=== PATIENT | male | born 1980 | race Caucasian/White ===

== ENCOUNTER 2020-05-23 19:01 | Emergency (ER) | payer SELFPAY ==
--- NOTE | ~2020-05-23 | XR_ITS ---
EXAMINATION: XR chest 1V EXAM DATE: 05/23/2020 19:42 INDICATION: Temporary change of awareness. TECHNIQUE: Portable AP frontal chest x-ray was obtained. There is no prior study for comparison. FINDINGS: Low lung volume with prominent cardiac size and some pulmonary vascular congestion. No conf luent consolidation, pneumothorax or pleural effusion suspected. There are no osseous abnormalities i dentified. IMPRESSION: Possible congestive changes versus low lung volume and vascular crowding. Reviewed, dictated and finalized at location A. 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
--- NOTE | ~2020-05-23 | CT_ITS ---
EXAMINATION: CTA brain carotid EXAM DATE: 05/23/2020 19:39 INDICATION: Temporary change in awareness. TECHNIQUE: Noncontrast head CT. Spiral CTA of the carotid arteries was performed with intravenous i njection 100 cc of Omnipaque 350. Axial, coronal, sagittal reformatted images reviewed. Additional r eformatted images created on dedicated 3-D workstation. NASCET comparable standard used to assess th e degree of arterial stenosis. Spiral CT angiogram cerebral arteries performed with the same intrave nous injection of contrast. Source images of the brain CTA transferred to dedicated workstation for 3 -D rotational image creation. Coronal, sagittal maximum intensity pixel images also reviewed. The d ose-length product (DLP) for this examination was 1648.37 mGy-cm. The exposure was tailored accordi ng to patient size, and iterative reconstruction (ASIR) was used as additional dose reduction techniq ue. There is no prior study for comparison. FINDINGS: There is no carotid stenosis. There is no carotid or vertebral basilar arterial dissection or fibromuscular dysplasia. There are no cerebral artery aneurysms. There is symmetric cerebral flaco ry arborization. The sagittal, transverse and sigmoid sinuses enhance normally, no venous sinus throm bosis. Internal cerebral veins also enhance normally. There is no acute intraparenchymal hemorrhage. No evidence of intraparenchymal brain mass lesion. N o evidence of acute infarction. There is no mass effect or midline shift. There is no obstructive hyd rocephalus suspected. There are no extra-axial collections. There are no calvarial acute fractures. There are no areas of abnormal enhancement on the post contrast images. IMPRESSION: Unremarkable CTA brain carotid exam. No stenosis. Reviewed, dictated and finalized at location A.
[2020-05-23 18:53] VITALS: BP 118/70; PULSE 78; RESP 20; TEMP 36.8; O2SAT 95
--- NOTE | 2020-05-23 19:01 | ECG_ITS ---
Measurements Intervals [place] Rate: 80 P: 50 NC: 195 QRS: 14 QRSD: 102 T: 15 QT: 372 QTc: 429 Interpretive Statements SINUS RHYTHM POSSIBLE LEFT ATRIAL ENLARGEMENT BORDERLINE T WAVE ABNORMALITY- INFERIOR LEADS BORDERLINE ECG Electronically Signed On 05-24-2020 7:08:02 CDT by Willis Morton D.O.
--- NOTE | 2020-05-23 19:11 | PC.NURSE ---
report taken at this time from ems and jaron kebede
--- NOTE | 2020-05-23 19:14 | PC.NURSE ---
pt taken to ct at this time.
[2020-05-23 19:15] LABS: Alveolar/Arterial O2 Gradient 22.4 mmHg; Base Excess ABG 0.2 mEq/l (+/-2.0); Basophils Absolute Auto 0.1 K/mm3 (0.0-0.1); Basophils Percent Auto 0.6 % (0.2-1.2); Eosinophils Absolute Auto 0.2 K/mm3 (0-0.3); Eosinophils Percent Auto 1.9 % (0-4.4); Fractional Inspired Oxygen 21 %; HCO3 ABG 26.5 mEq/l (22.0-26.0); Hematocrit 42.1 % (42.0-52.0); Hemoglobin 15.2 g/dL (14.0-18.0); Immature Granulocyte Absolute 0.03 K/mm3 (0.00-0.031); Immature Granulocyte Percent A 0.3 % (0-0.5); Lymphocytes Absolute Auto 2.65 K/mm3 (0.9-3.2); Lymphocytes Percent Auto 30.1 % (18.3-44.2); Mean Corpuscular HGB Conc 36.1 g/dl (32-36); Mean Corpuscular Hemoglobin 31.7 pg (26-34); Mean Corpuscular Volume 87.9 fl (80-100); Mean Platelet Volume 11.3 fl (7.4-10.4); Monocytes Absolute Auto 0.8 K/mm3 (0.1-0.6); Monocytes Percent Auto 8.6 % (2.6-8.5); Neutrophils Absolute Auto 5.1 K/mm3 (1.3-6.7); Neutrophils Percent Auto 58.5 % (45.5-73.1); Oxygen Saturation ABG 92.8 % (95.0-100.0); Oxyhemoglobin 92.7 % THb (90.0-100.0); PCO2 ABG 48.9 mmHg (35.0-45.0); PO2 ABG 68.8 mmHg (80.0-100.0); PO2 FiO2 Ratio Arterial Blood 3.28 %; Platelet Count Result 200 k/mm3 (150-375); Red Blood Count 4.79 M/mm3 (4.6-6.20); Red Cell Distribution Width 12.2 % (11.5-14.5); Site Drawn RIGHT BRACHIAL; Total Hemoglobin 14.6 g/dL (12.0-18.0); White Blood Count 8.8 K/mm3 (4.5-10.0); pH ABG 7.351 (7.350-7.450)
[2020-05-23 19:16] LABS: Device ROOM AIR
[2020-05-23] MEDS: SODIUM CHLORIDE 0.9% IV 1,000 ML 999 ML IV CONT (19:16)
[2020-05-23] MEDS: Please add drug allergy info to patient profile. 1 EACH XX (19:16)
[2020-05-23 19:25] LABS: Prothrombin Time 12.9 Seconds (11.1-14.7)
[2020-05-23 19:26] LABS: Partial Thromboplastin Time 21.6 SECONDS (22.3-36.8)
[2020-05-23 19:28] LABS: Acetaminophen < 10 ug/mL (10-30); Alanine Aminotransferase 60 U/L (4-50); Albumin Level 4.5 g/dL (3.5-5.1); Alkaline Phosphatase 32 U/L (38-126); Ammonia < 9 umol/L (9-30); Anion Gap 10 mmol/L (8-16); Aspartate Amino Transferase 35 U/L (17-59); Bilirubin,Total 0.7 mg/dL (0.2-1.3); Blood Urea Nitrogen 17 mg/dL (9-20); Carbon Dioxide 27 mmol/L (22-30); Chloride 100 mmol/L (98-107); Estimated CRCL calculation 99 ml/min; Estimated Glomerular Filt Rate > 60; Ethanol < 10 mg/dL (<10); Glucose 144 mg/dL (75-110); Potassium 3.7 mmol/L (3.4-5.0); Salicylate < 1.0 mg/dL (2-20); Sodium 137 mmol/L (137-145)
--- NOTE | 2020-05-23 19:34 | ED.AMS ---
HPI - Altered Mental Status General Chief Complaint: Altered Mental Status Stated Complaint: Altered Mental Status Source: family and EMS Mode of arrival: EMS Limitations: altered mental status History of Present Illness HPI narrative: This patient is a 39 year old male who presents via EMS for evaluation of altered mental status. PAtient's girlfriend states they were eating dinner at a restaurant when he told her he didn't feel well. She states patient went to the bathroom, but he did not return after 15 minutes. When she went to check on him, they found patient on bathroom floor with emesis on floor. Patient would not has talked. EMS states patient was unresponsive and they gave patient narcan 2 mg IV without response. He has no known medical problems. Related Data Home Medications Medication Instructions Recorded Confirmed No Home Medications 05/23/20 05/23/20 Allergies Allergy/AdvReac Type Severity Reaction Status Date / Time No Known Allergies Allergy Verified 05/23/20 19:02 Review of Systems Review of Systems: ROS unobtainable: Yes unobtainable due to mental status PMFSH Past Medical History Medical History (Updated 05/23/20 @ 21:33 by Cora Wilde MD) Patient denies medical problems Surgical History Surgical History (Updated 05/23/20 @ 21:26 by Cora Wilde MD) No significant past surgical history Social History Social History (Updated 05/23/20 @ 21:26 by Cora Wilde MD) Smoking status: Never smoker Exam Narrative: Exam Narrative: 1. on arrival physical exam gENERAL: patient looking around, not speaking HEAD: Normocephalic, atraumatic EYES: PERRLA and EOMI, conjunctiva clear without discharge THROAT:Mucous membranes moist, NECK: Supple, without lymphadenopathy or mass RESPIRATORY: No respiratory distress, Airway patent, Respirations non-labored, Clear to auscultation without rales, rhonchi or wheeze HEART: Regular rate and rhythm. No murmur heard. Normal peripheral pulses. ABDOMEN: Soft, nontender, nondistended, normal active bowel sounds. No masses. No rebound or guarding, No organomegaly. EXTREMITIES: No edema, unable to assess strength SKIN: Warm, dry, normal color without rash NEURO: Alert nonverbal, will move extremities with pain. 2. at 1999 physical exam GENERAL: Well-appearing, well-nourished, and in no acute distress. HEAD: Normocephalic, atraumatic EYES: PERRLA and EOMI, conjunctiva clear without discharge EARS: TM's clear bilaterally without erythema or dullness NOSE: Nares clear, no rhinorrhea or epistaxis THROAT:Mucous membranes moist, Oropharynx normal without erythema, exudate, peritonsillar swelling or fluctuance NECK: Supple, without lymphadenopathy or mass RESPIRATORY: No respiratory distress, Airway patent, Respirations non-labored, Clear to auscultation without rales, rhonchi or wheeze HEART: Regular rate and rhythm. No murmur heard. Normal peripheral pulses. ABDOMEN: Soft, nontender, nondistended, normal active bowel sounds. No masses. No rebound or guarding, No organomegaly. EXTREMITIES: No edema, normal strength with full range of motion. SKIN: Warm, dry, normal color without rash NEURO: Alert and oriented x3. CN 2-12 grossly intact. No focal deficits. PSYCH: Normal mood and affect. . Course Reevaluation(s) Reevaluation #1: Patient is awake and talking. He states he remembers eating and he went to the bathroom. He states he felt dizzy so he sat on the toilet. He does not remember anything after that until he was at the hospital. He denies focal deficits. He does report ringing in his left ear and dizziness. Date: 05/23/20 Time: 20:03 Reevaluation #2: Patient states he feels better. He was able to walk with steady gait without complaints. Patient has nonfocal exam. He may have suffered a concussion after falling in bathroom. Date: 05/23/20 Time: 21:29 Vital Signs Vital signs: Vital Signs Temperature 9
[2020-05-23 19:38] LABS: Troponin I < 0.012 ng/mL (0.000-0.034)
[2020-05-23 19:45] LABS: Glucose Point of Care 132 (65-105)
--- NOTE | 2020-05-23 19:46 | PC.NURSE ---
pt a&ox3 at this time after returning from ct. remembers going to restroom before event and waking up in hospital.
[2020-05-23 19:48] VITALS: BP 122/75; PULSE 94; RESP 18; O2SAT 100
[2020-05-23 19:57] LABS: Estimated CRCL calculation 99 ml/min; Estimated Glomerular Filt Rate > 60
[2020-05-23 20:02] LABS: Add Urine Microscopic? YES; Appearance Urine Clear (Clear); Bilirubin Urine Negative (Negative); Blood Urine 1+ (Negative); Color Urine Yellow (Yellow); Glucose Urine UA Negative (Negative); Ketones Urine Negative (Negative); Leukocyte Esterase Ur Negative LEU/UL (Negative); Mucus Urine Rare /lpf; Nitrate Urine Negative (Negative); Protein Urine Negative (Negative); RBC Urine 0-2 /hpf (0-2); Urobilinogen Urine Negative mg/dL (<2.0); WBC Urine 0-3 /hpf
[2020-05-23] MEDS: ONDANSETRON INJ 4 MG/2 ML VIAL IV PUSH (20:11)
[2020-05-23] MEDS: MECLIZINE HCL 25 MG TABLET PO (20:11)
[2020-05-23 20:13] VITALS: BP 127/89; PULSE 91; RESP 18; O2SAT 98
[2020-05-23 20:13] LABS: Creatine Kinase 58 U/L (55-170)
[2020-05-23 20:15] LABS: Amphetamine Screen Urine Negative (Negative); Barbiturate Screen Urine Negative (Negative); Benzodiazepines Screen Urine Negative (Negative); Cannabinoid Screen Urine Positive (Negative); Cocaine Screen Urine Negative (Negative); Methadone Screen Urine Negative (Negative); Opiate Screen Urine Negative (Negative); Phencyclidine Screen Urine Negative (Negative)
[2020-05-23 20:44] VITALS: BP 120/85; PULSE 88; RESP 19; O2SAT 97
--- NOTE | 2020-05-23 21:19 | PC.NURSE ---
pt ambulated around nursing station with no assistance at this time. edp made aware.
[2020-05-23 21:46] VITALS: BP 133/76; PULSE 79; RESP 19; TEMP 36.3; O2SAT 100
== END 2020-05-23 21:47 | disposition home or self-care (01) ==
PROVIDERS: Emergency Provider General Practice
DX: R42 Dizziness and giddiness (principal); R55 Syncope and collapse; R94.31 Abnormal electrocardiogram [ECG] [EKG]
CPT/HCPCS: 36415; 36600; 70496; 70498; 71045; 80053; 80307; 81001; 82140; 82550; 82805; 82948; 84484; 85025; 85610; 85730; 93005; 96361; 96374; 99284; A9270; J2405; J7030; Q9967

== ENCOUNTER 2022-09-15 14:21 | Emergency (ER) | payer BC, SELFPAY ==
[2022-09-15 14:38] VITALS: BP 121/77; PULSE 78; RESP 16; TEMP 36.7; O2SAT 100
--- NOTE | 2022-09-15 15:23 | ED.EYEPROB ---
HPI - Eye Problem General Chief complaint: Eye Problems Stated complaint: Bilateral Eye Irritation Time Seen by Provider: 09/15/22 15:18 Source: patient Mode of arrival: ambulatory Limitations: no limitations History of Present Illness HPI Narrative: Patient presents today complaining of bilateral red irritated eyes. Denies pain. Reports green/yellow drainage from the right eye. Symptoms began last night. Does report recent illness going through his household consisting of cough and congestion. He has tried no [id number] treatment prior to arrival. Denies foreign body sensation. Related Data Allergies Allergy/AdvReac Type Severity Reaction Status Date / Time No Known Allergies Allergy Verified 09/15/22 14:47 Review of Systems Review of Systems: CONSTITUTIONAL: Denies body aches, fever, chills, or sweats. EYES: Denies visual changes. + bilateral eye irritation, drainage ENT: Denies rhinorrhea, congestion, sore throat, or otalgia. CARDIOVASCULAR: Denies chest pain, palpitations, or edema. RESPIRATORY: Denies cough or dyspnea. GASTROINTESTINAL: Denies abdominal pain, nausea, vomiting, or diarrhea. GENITOURINARY: Denies dysuria or hematuria. SKIN: Denies rash, itching, or wounds. MUSCULOSKELETAL: Denies back pain, joint pain, or myalgia. NEUROLOGIC: Denies headache, numbness, tingling, or weakness. PSYCH: Denies depression or anxiety. PMFSH Past Medical History Medical History Patient denies medical problems Surgical History Surgical History No significant past surgical history Social History Social History Smoking status: Never smoker Comments At time of signature, I have reviewed and agree with nursing past medical, surgical, social and family history unless otherwise noted. Please see nursing chart for further information. There is no relevant family history pertinent to the presenting complaint Exam Narrative: GENERAL: Well-appearing, well-nourished, and in no acute distress. HEAD: Normocephalic, atraumatic. EYES: EOMI. PERRL. Bilateral swollen and injected conjunctiva, right greater than left. Small amount of yellow/green purulent discharge to the medial canthus of the right eye. Lids and lashes normal. ENT: Mucous membranes pink and moist. NECK: Normal AROM. CHEST: No respiratory distress. EXTREMITIES: Normal range of motion. SKIN: Warm, dry, no rash. Capillary refill normal. Normal skin turgor. NEURO: No focal deficits. Alert and oriented x3. Gait steady. PSYCH: Normal affect. No signs of depression or anxiety. Course Course Level of Care: Express Care Visit Vital Signs Vital signs: Vital Signs Temperature 98.0 F 09/15/22 14:38 Pulse Rate 78 09/15/22 14:38 Respiratory Rate 16 09/15/22 14:38 Blood Pressure 121/77 09/15/22 14:38 Pulse Oximetry 100 09/15/22 14:38 Oxygen Delivery Room Air 09/15/22 14:38 Temperature 98.0 F 09/15/22 14:38 Pulse Rate 78 09/15/22 14:38 Respiratory Rate 16 09/15/22 14:38 Blood Pressure 121/77 09/15/22 14:38 Pulse Oximetry 100 09/15/22 14:38 Oxygen Delivery Room Air 09/15/22 14:38 Reviewed. Pt has been instructed to follow up with his PCP regarding his elevated blood pressure today. MDM - Eye Problem Differential Diagnosis Differential diagnosis: Likely corneal abrasion, conjunctivitis, periorbital cellulitis and subconjunctival hemorrhage Critical Care Time Critical Care Time Critical Care Time: No Discharge Plan Discharge Clinical Impression: Acute bacterial conjunctivitis of both eyes Patient Disposition: Home, Self-Care Condition: Stable Instructions: Conjunctivitis (ED) Additional Instructions: Use the eyedrops as directed. Wash your hands frequently to help prevent spread. Follow-up with your ey
== END 2022-09-15 15:30 | disposition home or self-care (01) ==
PROVIDERS: Emergency Provider Nurse Practitioner
DX: H10.33 Unspecified acute conjunctivitis, bilateral (principal)
CPT/HCPCS: 99213; G0463

== ENCOUNTER 2022-10-22 09:40 | Emergency (ER) | payer BC, SELFPAY ==
[2022-10-22 09:57] VITALS: BP 139/78; PULSE 71; RESP 18; TEMP 36.8; O2SAT 100
--- NOTE | 2022-10-22 10:06 | ED.WOUNDLAC ---
HPI - Wound/Laceration General Chief Complaint: Wound/Laceration Stated Complaint: Cut Finger Lt Hand Time Seen by Provider: 10/22/22 10:10 Source: patient Mode of arrival: ambulatory Limitations: no limitations History of Present Illness HPI narrative: 41-year-old male presented for complaint of laceration to left middle finger that occurred today while at work. He states he cut it on a piece of metal. He has been applying pressure. Has not cleansed site. Endorses full ROM to finger without numbness, tingling or weakness. Unsure of his last tetanus vaccination. Related Data Allergies Allergy/AdvReac Type Severity Reaction Status Date / Time No Known Allergies Allergy Verified 10/22/22 10:06 Review of Systems Review of Systems: CONSTITUTIONAL: Denies body aches, fever, chills, or sweats. EYES: Denies visual changes, redness, or discharge. ENT: Denies rhinorrhea, congestion CARDIOVASCULAR: Denies chest pain, palpitations, or edema. RESPIRATORY: Denies cough or dyspnea. GASTROINTESTINAL: Denies abdominal pain, nausea, vomiting, or diarrhea. SKIN: laceration left middle finger MUSCULOSKELETAL: Denies back pain, joint pain, or myalgia. NEUROLOGIC: Denies headache, numbness, tingling, or weakness. [facility] Past Medical History Medical History Patient denies medical problems Surgical History Surgical History No significant past surgical history Social History Social History Smoking status: Never smoker Comments At time of signature, I have reviewed and agree with nursing past medical, surgical, social and family history unless otherwise noted. Please see nursing chart for further information. There is no relevant family history pertinent to the presenting complaint Exam Narrative: GENERAL: Well-appearing HEAD: Normocephalic, atraumatic. EYES: conjunctivae clear, and EOMI. ENT: Mucous membranes moist. Oropharynx without edema, erythema or lesions. NECK: Supple. No lymphadenopathy CHEST: Clear to auscultation. HEART: Regular rate and rhythm. SKIN: Warm, dry. 1.5 cm irregular laceration to left 3rd digit, radial aspect of PIP, small amount of bleeding. Full ROM to PIP, strength and sensation intact, cap refill <3seconds. NEURO: Alert and oriented x3. Course Course Emergency Course: Patient is aware of diagnosis, understands and agrees to treatment plan. Anticipatory guidance given. Patient agrees to follow-up as directed and is aware of reasons to seek care at the emergency department. Portions of this record may have been created with voice recognition software Level of Care: Express Care Visit Vital Signs Vital signs: Vital Signs Temperature 98.3 F 10/22/22 09:57 Pulse Rate 71 10/22/22 09:57 Respiratory Rate 18 10/22/22 09:57 Blood Pressure 139/78 10/22/22 09:57 Pulse Oximetry 100 10/22/22 09:57 Oxygen Delivery Room Air 10/22/22 09:57 Temperature 98.3 F 10/22/22 09:57 Pulse Rate 71 10/22/22 09:57 Respiratory Rate 18 10/22/22 09:57 Blood Pressure 139/78 10/22/22 09:57 Pulse Oximetry 100 10/22/22 09:57 Oxygen Delivery Room Air 10/22/22 09:57 Reviewed Procedures Laceration Left 3rd finger: Size (cm): 1.5 Description: irregular and clean Pre-repair: wound explored and irrigated extensively ====== Skin Level ====== Skin layer closed with: dermabond and steri strips ====== Subcutaneous Layer ====== ====== Muscle Layer ====== ====== Tendon Layer ====== Dressing: Wound cleansed with sterile water and Primaderm. Edges approximate, bleeding controlled. Tolerated fair, required cool compress and patient's HOB was layed flat. No LOC. Orthopedic Splinting/Casting left 3rd digit: Upper Extremity Immobilizer: aluminum f
[2022-10-22] MEDS: TETANUS,DIPHTHERIA,AC PERTUSSIS ADULT (0.5 ML) BOOSTRIX IM (10:24)
== END 2022-10-22 10:48 | disposition home or self-care (01) ==
PROVIDERS: Emergency Provider Nurse Practitioner Family
DX: S61.213A Laceration without foreign body of left middle finger without damage to nail, initial encounter (principal); W45.8XXA Other foreign body or object entering through skin, initial encounter; Z23 Encounter for immunization
CPT/HCPCS: 12001; 90471; 90715; 99213; G0463